=== PATIENT | male | born 1990 ===

== ENCOUNTER 2017-01-24 20:31 | Emergency (ER) | payer SELFPAY ==
[2017-01-24 20:32] VITALS: BMI 25.8
[2017-01-24 20:38] VITALS: RESP 18
[2017-01-24] MEDS ORDERED: Multivitamin (MVI) 10 ML, Folic Acid 1 MG, Thiamine 100 MG in Dextrose 5%/0.45% NS 1,00... IV ONE (21:07)
--- NOTE | 2017-01-24 21:23 | ED PDOC ---
HPI: Seizure Time Seen by Provider: 01/24/17 20:37 Chief Complaint (Nursing): Seizure Chief Complaint (Provider): Seizure History Per: EMS History/Exam Limitations: no limitations Recent Seizure Activity Began: Just Before Arrival, Weeks Ago: Post-ictal Period: Yes Additional Complaint(s): The patient is a 26yo male, brought in by ambulance for evaluation s/p having witnessed seizures in the [facility]. Upon arrival, patient is post-ictal and appears confused but is responsive. Patient w/ no other complaints. Past Medical History Reviewed: Historical Data, Nursing Documentation, Vital Signs Vital Signs: Last Vital Signs Temp 98.8 F 01/25/17 02:56 Pulse 86 01/25/17 02:56 Resp 18 01/25/17 02:56 BP 141/73 01/25/17 02:56 Pulse Ox 97 01/25/17 05:46 - Medical History PMH: Seizures Denies: Chronic Kidney Disease - Family History Family History: States: Unknown Family Hx - Living Arrangements Living Arrangements: Other (homeless usp) - Social History Alcohol: > 2 Drinks/Day - Immunization History Hx Tetanus Toxoid Vaccination: No Hx Influenza Vaccination: No Hx Pneumococcal Vaccination: No - Allergies Allergies/Adverse Reactions: Allergies Allergy/AdvReac Type Severity Reaction Status Date / Time No Known Allergies Allergy Verified 04/25/16 12:40 Review of Systems ROS Statement: Except As Marked, All Systems Reviewed And Found Negative Neurological: Positive for: Seizures Physical Exam - Reviewed Nursing Documentation Reviewed: Yes Vital Signs Reviewed: Yes - Physical Exam Appears: Positive for: Well, Non-toxic, No Acute Distress Head Exam: Positive for: ATRAUMATIC, NORMAL INSPECTION, NORMOCEPHALIC Skin: Positive for: Normal Color, Warm, DRY Eye Exam: Positive for: Normal appearance Neck: Positive for: Normal Cardiovascular/Chest: Positive for: Regular Rate, Rhythm Respiratory: Positive for: Normal Breath Sounds. Negative for: Respiratory Distress Gastrointestinal/Abdominal: Positive for: Normal Exam. Negative for: Tenderness Neurologic/Psych: Positive for: Alert, Oriented (x1) - Laboratory Results Result Diagrams: 01/24/17 21:20 01/24/17 21:20 - ECG O2 Sat by Pulse Oximetry: 97 (RA) Pulse Ox Interpretation: Normal Medical Decision Making Medical Decision Making: Time: 2044 Impression: seizures in setting of chronic alcoholism Plan: -- Labs -- Accucheck -- Banana bag Reassess Time: 2114 Patient awake, alert and oriented x 3. Scribe Attestation: Documented by Kamila Patterson acting as a scribe for Aly Sofia MD. Provider Attestation: All medical record entries made by the Scribe were at my direction and personally dictated by me. I have reviewed the chart and agree that the record accurately reflects my personal performance of the history, physical exam, medical decision making, and the department course for this patient. I have also personally directed, reviewed, and agree with the discharge instructions and disposition. Time: 2139 Patient placed under ED-OBS for observation for future seizures ED OBSERVATION Discharge: Yes Date of observation admission: 01/24/17 Time of observation admission: 21:40 - Observation admission statement Patient is being placed in observation because:: PMHX of seizures - Goals of Observation Goals of observation are:: Observation of possible future seizures - Progress Note Progress Note: 01/24/17 21:40 Pt is resting comfortably no further seizures observed. 01/24/17 23:10 Pt is resting comfortably no further seizures observed. 01/25/17 00:40 Pt is resting comfortably no further seizures observed. 01/25/17 02:10 Pt is resting comfortably no further seizures observed. 01/25/17 03:40 Pt is resting comfortably no further seizures observed. 01/25/17 05:10 Pt is resting comfortably no further seizures observed. Disposition - Clinical Impression Clinical Impression: Recurrent seizures - Patient ED Disposition Is Patient to be Admitted: No - Disposition Disposition: Routine/Home Disposition Time: 21:40 Condition: STABLE Instructions: Recurrent Seizures in Adults (ED) Print Language: PARAGUAYAN
[2017-01-24 21:31] LABS: BASO % 0.7 % (0.0-2.0); EOS # 0.1 K/uL (0.0-0.7); EOS % 2.3 % (0.0-4.0); HEMOGLOBIN 11.7 g/dL (12.0-18.0); LYMPH # 0.7 K/uL (1.0-4.3); LYMPH % 17.8 % (20.0-40.0); MEAN CELL VOLUME 96.8 fl (80.0-94.0); MEAN CORPUSCULAR HEMOGLOBIN 32.5 pg (27.0-31.0); MEAN CORPUSCULAR HGB CONC 33.5 g/dL (33.0-37.0); MEAN PLATELET VOLUME 8.8 fl (7.2-11.7); MONO # 0.6 K/uL (0.0-0.8); MONO % 15.2 % (0.0-10.0); NEUT # 2.5 K/uL (1.8-7.0); RBC 3.62 Mil/uL (4.40-5.90); RED CELL DISTRIBUTION WIDTH 15.4 % (11.5-14.5)
[2017-01-24 21:40] LABS: ALB/GLOB RATIO 1.5 (1.0-2.1); ALBUMIN 4.9 g/dL (3.5-5.0); ALT/SGPT 106 U/L (21-72); AST/SGOT 124 U/L (17-59); BLOOD UREA NITROGEN 11 mg/dl (9-20); CALCIUM 9.4 mg/dL (8.4-10.2); GFR AFRICAN-AMERICAN > 60; GFR NON-AFRICAN AMERICAN > 60
[2017-01-24 22:57] LABS: BARBITURATES, UR NEGATIVE (NEGATIVE); BENZODIAZEPINES, UR NEGATIVE (NEGATIVE); OPIATES, UR NEGATIVE (NEGATIVE); PHENCYCLIDINE, UR NEGATIVE (NEGATIVE)
[2017-01-25 06:12] VITALS: BP 136/71; PULSE 83; TEMP 98.2; O2SAT 99
== END 2017-01-25 06:19 | disposition home or self-care (01) ==
LOC: H.ER 20:31
DX: G40.909 Epilepsy, unspecified, not intractable, without status epilepticus (principal); F10.20 Alcohol dependence, uncomplicated
CPT/HCPCS: 80053; 82948; 85025; 99285; G0480; J3411; J7042

== ENCOUNTER 2017-02-05 23:19 | Emergency (ER) | payer SELFPAY ==
[2017-02-05 23:25] VITALS: BMI 26.6
[2017-02-05 23:32] VITALS: BP 100/73; PULSE 88; RESP 18; TEMP 98.5; O2SAT 99
--- NOTE | 2017-02-06 00:45 | ED PDOC ---
HPI: Seizure Time Seen by Provider: 02/05/17 23:25 Chief Complaint (Nursing): Seizure Chief Complaint (Provider): Seizure History Per: Patient History/Exam Limitations: no limitations Recent Seizure Activity Began: Just Before Arrival Number Of Seizures: One Length Of Seizures (Duration): Unknown Quality Of Seizure: Generalized Post-ictal Period: Yes Additional Complaint(s): 26 year old male brought in by EMS presents to ED with complaints of a seizure and has a past medical history of alcohol withdrawal seizures. Patient has been seen in ED several times for seizures. Patient notes that he does not remember what happened and is unsure if he hit his head. Confirms that he is now at baseline. Denies being on any seizure medications. PCP: JONI Past Medical History Reviewed: Historical Data, Nursing Documentation, Vital Signs Vital Signs: Last Vital Signs Temp 98.5 F 02/05/17 23:26 Pulse 88 02/05/17 23:26 Resp 18 02/05/17 23:26 BP 100/73 02/05/17 23:26 Pulse Ox 99 02/06/17 06:28 - Medical History PMH: Seizures Denies: Chronic Kidney Disease - Surgical History Surgical History: No Surg Hx - Family History Family History: States: No Known Family Hx - Social History Current smoker - smoking cessation education provided: Yes Ex-Smoker (has not smoked in the last 12 months): No Alcohol: > 2 Drinks/Day Drugs: Cannabis - Immunization History Hx Tetanus Toxoid Vaccination: No Hx Influenza Vaccination: No Hx Pneumococcal Vaccination: No - Home Medications Home Medications: Ambulatory Orders Medication Instructions Recorded No Known Home Med 02/06/17 - Allergies Allergies/Adverse Reactions: Allergies Allergy/AdvReac Type Severity Reaction Status Date / Time No Known Allergies Allergy Verified 02/06/17 00:29 Review of Systems ROS Statement: Except As Marked, All Systems Reviewed And Found Negative Neurological: Positive for: Seizures Physical Exam - Reviewed Nursing Documentation Reviewed: Yes Vital Signs Reviewed: Yes - Physical Exam Appears: Positive for: Non-toxic, No Acute Distress Head Exam: Positive for: ATRAUMATIC, NORMOCEPHALIC Skin: Positive for: Normal Color, Warm, Dry Eye Exam: Positive for: Normal appearance, EOMI, PERRL ENT: Positive for: Normal ENT Inspection Neck: Positive for: Normal, Painless ROM, Supple Cardiovascular/Chest: Positive for: Regular Rate, Rhythm. Negative for: Murmur Respiratory: Positive for: Normal Breath Sounds. Negative for: Respiratory Distress Gastrointestinal/Abdominal: Positive for: Normal Exam, Soft. Negative for: Tenderness Back: Positive for: Normal Inspection Extremity: Positive for: Normal ROM. 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 Negative for: Motor/Sensory Deficits - Laboratory Results Result Diagrams: 02/06/17 00:20 02/06/17 00:20 - ECG O2 Sat by Pulse Oximetry: 99 (RA) Pulse Ox Interpretation: Normal Medical Decision Making Medical Decision Makin Initial impression: possible EtOH withdrawal seizure Initial plan: * CT HEAD * EtOH serum * Labs * UDrug screen 0054 CT HEAD FINDINGS Brain: Minimal atrophy. No intracranial hemorrhage. No mass. No definite edema. Ventricles: No hydrocephalus. Bones/joints: No acute fracture. Soft tissues: Unremarkable. Sinuses: No acute sinusitis. Mastoid air cells: No mastoid effusion. Orbits: Unremarkable as visualized. IMPRESSION: 1. No acute intracranial abnormality. 2. Incidental/non-acute findings are described above. 0249 Chemistry: no clinically significant findings. EtOH serum returned negative. (+ ) Marijuana in UDrug Patient is medically stable and ready for discharge. Counseling has been provided and patient is in agreement. Return if symptoms persist or acutely worsen. Scribe Attestation: Documented by Alisia Campos acting as a scribe for Deann Abreu MD. Scribe Attestation: All medical record entries made by the Scribe were at my direction and personally dictated by me. I have reviewed the chart and agree that the record accurately reflects my personal performance of the history, physical exam, medical decision making, and the department course for this patient. I have also personally directed, reviewed, and agree with the discharge instructions and disposition. Disposition - Clinical Impression Clinical Impression: Drug withdrawal seizure - Patient ED Disposition Is Patient to be Admitted: No Counseled Patient/Family Regarding: Studies Performed, Diagnosis, Need For Followup - Disposition Disposition: Routine/Home Disposition Time: 01:00 Condition: IMPROVED
[2017-02-06 00:59] LABS: BASO # 0.1 K/uL (0.0-0.2); BASO % 2.5 % (0.0-2.0); EOS # 0.1 K/uL (0.0-0.7); EOS % 2.6 % (0.0-4.0); LYMPH # 1.3 K/uL (1.0-4.3); LYMPH % 24.1 % (20.0-40.0); MEAN CELL VOLUME 98.1 fl (80.0-94.0); MEAN CORPUSCULAR HGB CONC 33.7 g/dL (33.0-37.0); MEAN PLATELET VOLUME 7.5 fl (7.2-11.7); MONO # 0.7 K/uL (0.0-0.8); MONO % 12.6 % (0.0-10.0); NEUT # 3.1 K/uL (1.8-7.0); NEUT % 58.2 % (50.0-75.0); NRBC % 0.1 % (0.0-0.0); RBC 3.95 Mil/uL (4.40-5.90); RED CELL DISTRIBUTION WIDTH 14.6 % (11.5-14.5); WHITE BLOOD COUNT 5.4 K/uL (4.8-10.8)
[2017-02-06 05:12] LABS: ALB/GLOB RATIO 1.5 (1.0-2.1); ALBUMIN 4.8 g/dL (3.5-5.0); ALT/SGPT 79 U/L (21-72); AST/SGOT 61 U/L (17-59); BLOOD UREA NITROGEN 11 mg/dl (9-20); CALCIUM 9.5 mg/dL (8.4-10.2); GFR AFRICAN-AMERICAN > 60; GFR NON-AFRICAN AMERICAN > 60
[2017-02-06 05:12] LABS: BARBITURATES, UR NEGATIVE (NEGATIVE); BENZODIAZEPINES, UR NEGATIVE (NEGATIVE); OPIATES, UR NEGATIVE (NEGATIVE); PHENCYCLIDINE, UR NEGATIVE (NEGATIVE)
--- NOTE | 2017-02-06 09:11 | CT ---
PROCEDURE: CT HEAD WITHOUT CONTRAST. HISTORY: seizure COMPARISON: Head CT 04/25/2016. TECHNIQUE: Axial computed tomography images were obtained through the head/brain without intravenous contrast. Radiation dose: Total exam DLP = 857 mGy-cm. This CT exam was performed using one or more of the following dose reduction techniques: Automated exposure control, adjustment of the mA and/or kV according to patient size, and/or use of iterative reconstruction technique. FINDINGS: HEMORRHAGE: No intracranial hemorrhage. BRAIN: No mass effect or edema. Density appears normal within the ramirez and white matter structures above or below the tentorium including the brainstem. VENTRICLES: Unremarkable. No hydrocephalus. CALVARIUM: Unremarkable. PARANASAL SINUSES: Unremarkable as visualized. No significant inflammatory changes. MASTOID AIR CELLS: Unremarkable as visualized. No inflammatory changes. OTHER FINDINGS: None. IMPRESSION: Normal CT of the Head. No significant interval change compared to prior head CT 04/25/2016. Preliminary results provided by [facility] radiologist 02/06/2017.
== END 2017-02-06 03:10 | disposition home or self-care (01) ==
LOC: H.ER 23:19
DX: F10.231 Alcohol dependence with withdrawal delirium (principal); Z87.891 Personal history of nicotine dependence
CPT/HCPCS: 70450; 80053; 85025; 99284; G0480

== ENCOUNTER 2017-02-26 10:22 | Inpatient (IN) | payer OTHER ==
[2017-02-26 10:23] VITALS: BMI 26.6
[2017-02-26] MEDS ORDERED: Sodium Chloride 0.9% 1,000 ML IV STA ×2 (10:52→11:36)
--- NOTE | 2017-02-26 11:07 | RAD ---
HISTORY: Seizure COMPARISON: Comparison made with chest radiograph 12/25/2014 FINDINGS: LUNGS: No active pulmonary disease. PLEURA: No significant pleural effusion identified, no pneumothorax apparent. CARDIOVASCULAR: Normal. OSSEOUS STRUCTURES: No significant abnormalities. VISUALIZED UPPER ABDOMEN: Normal. OTHER FINDINGS: None. IMPRESSION: No active disease.
[2017-02-26 11:11] LABS: BASO # 0.1 K/uL (0.0-0.2); BASO % 1.5 % (0.0-2.0); EOS # 0.1 K/uL (0.0-0.7); EOS % 1.4 % (0.0-4.0); HEMOGLOBIN 14.1 g/dL (12.0-18.0); LYMPH # 2.6 K/uL (1.0-4.3); LYMPH % 40.8 % (20.0-40.0); MEAN CELL VOLUME 100.5 fl (80.0-94.0); MEAN CORPUSCULAR HEMOGLOBIN 33.4 pg (27.0-31.0); MEAN CORPUSCULAR HGB CONC 33.3 g/dL (33.0-37.0); MEAN PLATELET VOLUME 8.6 fl (7.2-11.7); MONO # 0.5 K/uL (0.0-0.8); MONO % 8.4 % (0.0-10.0); NEUT # 3.1 K/uL (1.8-7.0); NEUT % 47.9 % (50.0-75.0); NRBC % 0.1 % (0.0-0.0); RBC 4.21 Mil/uL (4.40-5.90); RED CELL DISTRIBUTION WIDTH 13.1 % (11.5-14.5); WHITE BLOOD COUNT 6.5 K/uL (4.8-10.8)
[2017-02-26 11:22] LABS: ALB/GLOB RATIO 1.5 (1.0-2.1); ALBUMIN 5.4 g/dL (3.5-5.0); ALT/SGPT 57 U/L (21-72); AST/SGOT 79 U/L (17-59); BLOOD UREA NITROGEN 8 mg/dl (9-20); CALCIUM 9.5 mg/dL (8.4-10.2); GFR AFRICAN-AMERICAN > 60; GFR NON-AFRICAN AMERICAN > 60
[2017-02-26] MEDS ORDERED: Multivitamin (MVI) 10 ML, Thiamine 100 MG, Folic Acid 1 MG in Sodium Chloride 0.9% 1,00... IV ONE (11:37)
--- NOTE | 2017-02-26 11:40 | CT ---
PROCEDURE: CT HEAD WITHOUT CONTRAST. HISTORY: Head injury COMPARISON: None available. TECHNIQUE: Axial computed tomography images were obtained through the head/brain without intravenous contrast. Radiation dose: Total exam DLP = 865.26 MGy-cm. This CT exam was performed using one or more of the following dose reduction techniques: Automated exposure control, adjustment of the mA and/or kV according to patient size, and/or use of iterative reconstruction technique. FINDINGS: HEMORRHAGE: No intracranial hemorrhage. BRAIN: -white matter differentiation is preserved. There is no mass, mass effect or abnormal extra-axial fluid collection VENTRICLES: The ventricles are normal in size, shape and configuration.. CALVARIUM: There is no calvarial fracture. There is a small left parietal scalp hematoma. PARANASAL SINUSES: Unremarkable as visualized. No significant inflammatory changes. MASTOID AIR CELLS: Unremarkable as visualized. No inflammatory changes. OTHER FINDINGS: None. IMPRESSION: No acute intracranial abnormality. Small left parietal scalp hematoma.
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
[2017-02-26 12:05] LABS: BARBITURATES, UR NEGATIVE (NEGATIVE); BENZODIAZEPINES, UR NEGATIVE (NEGATIVE); OPIATES, UR NEGATIVE (NEGATIVE); PHENCYCLIDINE, UR NEGATIVE (NEGATIVE)
[2017-02-26 12:29] LABS: SQUAMOUS EPITHIAL < 1 /hpf (0-5); URINE BILIRUBIN NEGATIVE (NEGATIVE); URINE BLOOD MODERATE (NEGATIVE); URINE CLARITY SLIGHTY-CLOUDY (Clear); URINE COLOR YELLOW (YELLOW); URINE GLUCOSE (UA) NEG (Normal); URINE LEUKOCYTE ESTERASE NEG Leu/uL (Negative); URINE NITRATE NEGATIVE (NEGATIVE); URINE PROTEIN 100 mg/dL (NEGATIVE); URINE UROBILINOGEN 0.2-1.0 mg/dL (0.2-1.0)
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
--- NOTE | 2017-02-26 13:05 | CT ---
PROCEDURE: CT scan maxillofacial skeleton dated 02/26/2017. HISTORY: Head injury. COMPARISON: Correlation made with concurrent CT scan of the brain 02/26/2017 TECHNIQUE: Contiguous helical/transaxial CT images of the maxillofacial bones were obtained. Coronal and sagittal reformats were generated. Radiation dose: Total exam DLP = 894.94 mGy-cm. This CT exam was performed using one or more of the following dose reduction techniques: Automated exposure control, adjustment of the mA and/or kV according to patient size, and/or use of iterative reconstruction technique. . FINDINGS: The current study reveals fracture traversing left angle of the mandible and right parasagittal ofsymphyseal region. The slight enlargement of the left masses or muscle possibly due to post traumatic sequela as well. There is overall and minor soft tissue swelling. . Note that the fracture traversing the left angle of the mandible extends adjacent to an unerupted wisdom tooth. No additional acute maxillofacial skeletal fractures. There appears to be mild left sided facial soft tissue swelling that extends in the left superior premaxillary region and over the left zygomatic arch. No radiopaque foreign bodies. Bony orbits unremarkable. Globes intact and lenses appropriately located. There are no retrobulbar hemorrhages or collections. Optic nerves and extraocular musculature unremarkable. The paranasal sinuses well-developed and also well-aerated. No fluid levels seen to suggest acute hemorrhage or sinusitis. The ostiomeatal complexes are patent. Impression: Fractures of the left aspect of the mandible at the angle and right parasymphyseal region. Note these findings were discussed with Dr. Sanches at approximately 1 p.m. with written down and read back verification. . See above discussion for additional findings and details.
[2017-02-26 15:04] VITALS: TEMP 98
[2017-02-26] MEDS ORDERED: Pneumococcal 23-Valent Vaccine IM ONE (15:20)
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
--- NOTE | 2017-02-26 15:48 | CARD ---
APPROVED REPORT EKG Measurement Heart [id number] FL [id number] <Conclusion> Normal sinus rhythm Normal ECG
[2017-02-26 16:02] VITALS: O2SAT 98
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
[2017-02-26 17:31] VITALS: BP 136/86; PULSE 91; RESP 19
[2017-02-27] MEDS ORDERED: Multiple Vitamins Oral Solution PO SCH (09:00)
== END 2017-02-26 18:50 | disposition short-term general hospital (02) | DRG 750 ==
LOC: H.ER 10:22 → H.ERHOLD 12:54 → H.ICU/CCU 13:44
PROVIDERS: ADMIT Student in an Organized Health Care Education/Training Program; ATTEND Student in an Organized Health Care Education/Training Program
DX: F10.239 Alcohol dependence with withdrawal, unspecified (principal); R56.9 Unspecified convulsions; S02.69XA Fracture of mandible of other specified site, initial encounter for closed fracture; S06.5X9A Traumatic subdural hemorrhage with loss of consciousness of unspecified duration, initial encounter; S02.652A Fracture of angle of left mandible, initial encounter for closed fracture; W18.30XA Fall on same level, unspecified, initial encounter

== ENCOUNTER 2017-03-02 23:48 | Emergency (ER) | payer OTHER ==
[2017-03-02 23:48] VITALS: BMI 26.6
[2017-03-03 00:05] VITALS: BP 132/82; PULSE 114; RESP 18; TEMP 98.1; O2SAT 99
[2017-03-03] MEDS ORDERED: Oxycodone/Acetaminophen 5/325 mg Tab PO STA (00:21)
--- NOTE | 2017-03-03 00:34 | ED PDOC ---
HPI: Dental Pain/Injury Time Seen by Provider: 03/03/17 00:00 Chief Complaint (Nursing): Wound Check Chief Complaint (Provider): Wound Check History Per: Patient History/Exam Limitations: no limitations Onset/Duration Of Symptoms: Days (x3) Additional Complaint(s): Stanley Novak is a 26 year old male that presents to the ED with a chief complaint of left-sided facial pain and jaw pain that he has been experiencing since he had surgery three days ago to repair a facial fracture. He states that upon the original onset of his pain, he was seen at [facility], where he was found to have a subdural hematoma and facial fracture, at which point he was transferred to [facility] for surgery. Patient states that he is unaware of his surgeon's name or phone number. He denies any fever, new trauma, numbness, or tingling. Past Medical History Reviewed: Historical Data, Nursing Documentation, Vital Signs Vital Signs: Last Vital Signs Temp 98.1 F 03/03/17 00:03 Pulse 114 H 03/03/17 00:03 Resp 18 03/03/17 00:03 BP 132/82 03/03/17 00:03 Pulse Ox 99 03/03/17 00:03 - Medical History PMH: Seizures Denies: HIV, Chronic Kidney Disease - Family History Family History: States: No Known Family Hx - Immunization History Hx Tetanus Toxoid Vaccination: No Hx Influenza Vaccination: No Hx Pneumococcal Vaccination: No - Home Medications Home Medications: Ambulatory Orders Medication Instructions Recorded Folic Acid 1 mg PO DAILY tab 02/26/17 Gabapentin [Neurontin] 300 mg PO TID cap 02/26/17 Ibuprofen [Motrin Tab] 400 mg PO Q6 PRN tab 02/26/17 LORazepam [Ativan] 1 mg PO TID PRN tab 02/26/17 Multivitamin [Multi-Delyn Liquid] 5 ml PO DAILY syr 02/26/17 Ondansetron [Zofran Inj] 4 mg IVP Q6 PRN vial 02/26/17 Thiamine [Vitamin B1 Tab] 100 mg PO DAILY #0 tab 02/26/17 - Allergies Allergies/Adverse Reactions: Allergies Allergy/AdvReac Type Severity Reaction Status Date / Time No Known Allergies Allergy Verified 03/03/17 00:02 Review of Systems Constitutional: Negative for: Fever, Other (denies new trauma) Neurological: Negative for: Numbness, Other (denies tingling) Physical Exam - Reviewed Nursing Documentation Reviewed: Yes Vital Signs Reviewed: Yes - Physical Exam Appears: Positive for: Non-toxic, No Acute Distress Head Exam: Positive for: ATRAUMATIC, NORMOCEPHALIC Skin: Positive for: Normal Color, Warm Eye Exam: Positive for: Normal appearance, EOMI, PERRL ENT: Positive for: Normal ENT Inspection, Other (Moderate left-sided facial swelling. Jaw wires in place. No fluctuance, erythema, induration, or bleeding. ) Cardiovascular/Chest: Positive for: Regular Rate, Rhythm. Negative for: Murmur Respiratory: Positive for: Normal Breath Sounds. Negative for: Wheezing Neurologic/Psych: Positive for: Alert, Oriented. Negative for: Motor/Sensory Deficits - ECG O2 Sat by Pulse Oximetry: 99 (RA) Pulse Ox Interpretation: Normal Medical Decision Making Medical Decision Making: Impression: Left-Sided Facial and Jaw Pain Plan: * Percocet 2 tab PO * Reevaluation Patient instructed to contact [facility] to find his surgeon's name for a follow up. Scribe Attestation: Documented by Judy Bolanos, acting as a scribe for Chapito Rose PA-C. Provider Scribe Attestation: All medical record entries made by the Scribe were at my direction and personally dictated by me. I have reviewed the chart and agree that the record accurately reflects my personal performance of the history, physical exam, medical decision making, and the department course for this patient. I have also personally directed, reviewed, and agree with the discharge instructions and disposition. Disposition - Clinical Impression Clinical Impression: Visit for wound check - Patient ED Disposition Is Patient to be Admitted: No - Disposition Disposition: Routine/Home Disposition Time: 02:15 Condition: STABLE Additional Instructions: CONTACT [facility] TO FIND OUT YOUR SURGEON'S NAME Instructions: Facial Fracture (ED) Forms: [employer] (Macedonian) Print Language: ALBANIAN
== END 2017-03-03 00:22 | disposition home or self-care (01) ==
LOC: H.ER 23:48
DX: Z48.00 Encounter for change or removal of nonsurgical wound dressing (principal)

== ENCOUNTER 2018-03-24 17:15 | Emergency (ER) | payer OTHER ==
[2018-03-24 17:15] VITALS: BMI 25.1
[2018-03-24 17:20] VITALS: RESP 18; TEMP 99.3
[2018-03-24 18:30] LABS: BASO % 0.5 % (0.0-2.0); EOS % 0.1 % (0.0-4.0); HEMOGLOBIN 14.4 g/dL (12.0-18.0); LYMPH # 0.9 K/uL (1.0-4.3); LYMPH % 10.9 % (20.0-40.0); MEAN CELL VOLUME 97.7 fl (80.0-94.0); MEAN CORPUSCULAR HEMOGLOBIN 34.1 pg (27.0-31.0); MEAN CORPUSCULAR HGB CONC 34.9 g/dL (33.0-37.0); MONO # 0.9 K/uL (0.0-0.8); NEUT # 6.5 K/uL (1.8-7.0); NEUT % 77.5 % (50.0-75.0); RBC 4.21 Mil/uL (4.40-5.90); RED CELL DISTRIBUTION WIDTH 12.9 % (11.5-14.5); WHITE BLOOD COUNT 8.3 K/uL (4.8-10.8)
[2018-03-24 18:31] LABS: ALB/GLOB RATIO 1.4 (1.0-2.1); ALT/SGPT 74 U/L (21-72); AST/SGOT 150 U/L (17-59); BLOOD UREA NITROGEN 4 mg/dl (9-20); CALCIUM 9.5 mg/dL (8.4-10.2); GFR NON-AFRICAN AMERICAN > 60
--- NOTE | 2018-03-24 18:36 | CT ---
Date of service: 03/24/2018 PROCEDURE: CT HEAD WITHOUT CONTRAST. HISTORY: r/o ICH COMPARISON: Noncontrast head CT performed 02/26/17 TECHNIQUE: Axial computed tomography images were obtained through the head/brain without intravenous contrast. Radiation dose: Total exam DLP = 829.87 mGy-cm. This CT exam was performed using one or more of the following dose reduction techniques: Automated exposure control, adjustment of the mA and/or kV according to patient size, and/or use of iterative reconstruction technique. FINDINGS: HEMORRHAGE: No intracranial hemorrhage. BRAIN: No mass effect or edema. No atrophy or chronic microvascular ischemic changes.Please note that MRI with diffusion imaging is more sensitive in the detection of acute ischemic event. VENTRICLES: No hydrocephalus. CALVARIUM: Unremarkable. PARANASAL SINUSES: Unremarkable as visualized. No significant inflammatory changes. MASTOID AIR CELLS: Unremarkable as visualized. No inflammatory changes. OTHER FINDINGS: None. IMPRESSION: No acute intracranial pathology identified.
[2018-03-24 19:38] VITALS: BP 149/89; PULSE 83; O2SAT 98
--- NOTE | 2018-03-24 22:52 | ED PDOC ---
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 Patient has hx alcohol withdrawal seizures, is amnestic to events prior to arrival. per chart was seen at [facility] earlier today for same- reported seizure. Admits to last drink being 1 day ago. Denies headache, neck or ext pain. Noticed tongue bite, no bleeding. Past Medical History Reviewed: Historical Data, Nursing Documentation, Vital Signs Vital Signs: Last Vital Signs Temp 99.3 F 03/24/18 17:18 Pulse 83 03/24/18 19:36 Resp 18 03/24/18 19:36 BP 149/89 03/24/18 19:36 Pulse Ox 98 03/24/18 19:36 - Medical History PMH: Seizures (as per previous triage) Denies: Atrial Fibrillation, HIV, Chronic Kidney Disease - Family History Family History: States: Unknown Family Hx - Social History Alcohol: > 2 Drinks/Day - Immunization History Hx Tetanus Toxoid Vaccination: No Hx Influenza Vaccination: No Hx Pneumococcal Vaccination: No - Home Medications Home Medications: Ambulatory Orders Medication Instructions Recorded No Known Home Med 03/24/18 - Allergies Allergies/Adverse Reactions: Allergies Allergy/AdvReac Type Severity Reaction Status Date / Time No Known Allergies Allergy Verified 03/24/18 17:17 Review of Systems Constitutional: Negative for: Fever, Weakness ENT: Negative for: Throat Pain Cardiovascular: Negative for: Chest Pain Respiratory: Negative for: Shortness of Breath Gastrointestinal: Negative for: Abdominal Pain Musculoskeletal: Negative for: Neck Pain, Back Pain Neurological: Positive for: Seizures, Headache, Dizziness. Negative for: Weakness, Numbness Physical Exam - Reviewed Nursing Documentation Reviewed: Yes Vital Signs Reviewed: Yes - Physical Exam Appears: Positive for: Non-toxic Head Exam: Positive for: ATRAUMATIC, NORMAL INSPECTION, NORMOCEPHALIC Skin: Positive for: Normal Color, Warm, DRY Eye Exam: Positive for: EOMI, Normal appearance, PERRL ENT: Positive for: Other (tongue bite no laceration). Negative for: Tonsillar Swelling Neck: Positive for: Normal, Painless ROM Cardiovascular/Chest: Positive for: Regular Rate, Rhythm Respiratory: Positive for: CNT, Normal Breath Sounds Gastrointestinal/Abdominal: Positive for: Soft. Negative for: Tenderness, Distended, Guarding Back: Positive for: Normal Inspection Extremity: Positive for: Normal ROM Neurologic/Psych: Positive for: Alert, Oriented, Other (post ictal on arrival improved gradually ). Negative for: Motor/Sensory Deficits, Aphasia - Laboratory Results Result Diagrams: 03/24/18 17:50 03/24/18 17:50 - ECG O2 Sat by Pulse Oximetry: 98 Medical Decision Making Medical Decision Making: prior charts reviewed labs obtained, CT brain obtained given recurrent seizures, etoh abuse ativan 1mg given monitored in ED for several hours, etoh neg, mild tremors responsive to ativan 1mg IV, offered hospitalization and understood need for further monitoring given recurrent seizures and etoh withdrawal but patient LBTC, witnessed leaving ED without IV w steady gate. Disposition - Clinical Impression Clinical Impression: Generalized seizure - Patient ED Disposition Is Patient to be Admitted: No Counseled Patient/Family Regarding: Studies Performed, Diagnosis - Disposition Disposition: Left W/O Treatment Disposition Time: 18:30 Condition: STABLE
--- NOTE | 2018-03-25 07:32 | CARD ---
APPROVED REPORT Date of service: 03/24/2018 EKG Measurement Heart [id number] <Conclusion> Normal sinus rhythm Normal ECG
--- NOTE | 2018-03-25 09:04 | RAD ---
Date of service: 03/24/2018 HISTORY: SOB COMPARISON: Frontal chest radiograph 02/26/2017. FINDINGS: LUNGS: Somewhat diminished inspiratory volume however there is no airspace disease identified bilaterally. PLEURA: No significant pleural effusion identified, no pneumothorax apparent. CARDIOVASCULAR: Normal. OSSEOUS STRUCTURES: No significant abnormalities. VISUALIZED UPPER ABDOMEN: Normal. OTHER FINDINGS: None. IMPRESSION: Interval diminished volume however no airspace disease identified focally. Exam otherwise unremarkable bilaterally. No acute cardiovascular changes in the interval.
== END 2018-03-24 21:55 | disposition left against medical advice (07) ==
LOC: H.ER 17:15
DX: R56.9 Unspecified convulsions (principal)
CPT/HCPCS: 70450; 71045; 80053; 80320; 82948; 85025; 93005; 96374; 99284; J2060